=== PATIENT | female | born 1985 | race African-American/Black ===

== ENCOUNTER 2024-08-22 17:37 | Emergency (ER) | payer OTHER ==
[~2024-08-22] VITALS: Ht 167.6 cm; Wt 105.0 kg
--- NOTE | 2024-08-22 17:47 | ED.PDOC ---
SOB-HPI HPI Comments HPI: Poor Historian. 38-year-old female presents to emergency depart for nonproductive cough with the associated subjective fever for the last three days. Patient has history of asthma. Patient took Advil 2 hours prior to arrival. Incidentally patient also mentions having painful urination. Patient also has some mild congestion and runny nose. She suspects having sick contacts at her work place. She denies being , currently. Past Medical History: Diabetes, asthma, obesity Past Surgical History: x4 REVIEW OF SYSTEMS: CONSTITUTIONAL: Denies acute: diaphoresis, chills, HEAD: Denies acute: headache, photophobia Eyes: Denies acute: Double vision, vision loss, eye pain, eye discharge. EARS: Denies acute: tinnitus, hearing loss, ear discharge, ear pain, THROAT: Denies acute: sore throat, swelling, difficulty swallowing , pain with swallowing, change in voice. NECK: Denies acute: neck pain, neck swelling, stiff neck. HEART: Denies acute : chest pain, palpitations, LUNGS: Denies acute: wheezing, hemoptysis ABDOMEN: Denies acute: abdominal pain, Nausea, Vomiting, diarrhea, melena , hematemesis, hematochezia SKIN: Denies acute: rash, redness, lesions, itchiness. EXTREMITIES: Denies acute: calf pain, numbness, tingling, weakness, denies pain in extremity. Denies acute: Low back pain. Neuro: Denies acute: focal neurological deficit, motor or sensory focal neurological deficit, tremors, seizure like activity, confusion, dizziness, change in mental status, loss of bowel or bladder function, cauda equina like symptoms. : Denies acute: hematuria, flank pain, increase in urinary frequency. PSYCH: Denies acute: hallucination, suicidal ideation, homicidal ideation. FEMALE: Denies acute: abnormal vaginal bleeding, foul odor, unusual discharge. PHYSICAL EXAM: General: ---[id number]-----acute distress, awake and alert. Head: normocephalic, atraumatic. Neck: supple, trachea is midline, no swelling. Eyes:, no erythema, no purulent discharge, no proptosis, no icterus. Heart: regular rate, regular rhythm, no significant murmur appreciated. Lungs: no apparent respiratory distress, Able to speak in full sentences. No wheezing, no rhonchi, no crackles. No stridors Clear to auscultation bilaterally. Abdomen: non tender to palpation, non distended, soft, no guarding, no rebound, + bowel sounds. Neuro: Awake, Alert, oriented to name, self, situation, follows commands GCS=15. Speech is normal. Skin: no petechia, no purpura, no cyanosis, non-pale, not jaundice. Lower extremities: --no - Pitting edema no deformity, no focal swelling, no calf TTP. Makes eye contact. moves all four extremities. Face: no apparent facial droop. No CVA tenderness to percussion bilaterally. Ambulating in the ED independently. Ears: Normal appearing TM b/l, Stroke: finger to nose cerebellar testing is intact. No pronator drift. Symmetrical coding assistant muscle strength b/l PERRLA, EOM-I CN 2-12 are grossly intact, Pedal pulses are palpable. No nystagmus. No nuchal rigidity, Kernig's sign, Brudzinski's sign, no meningeal signs. ED COURSE: Time Seen by MD: 17:39 Reviewed notes: Nurses Notes, Medications, Allergies Information Source: Patient Was a procedure done? Was a procedure done?: No Differential Dx Differential Diagnosis: Bronchitis, Sinusitis, Allergic Rhinitis, URI, Other (DDx include ACS, unstable angina, anxiety, PE, pneumothroax, neoplasm, cardiac ischemia, COPD, asthma, CHF, pleural effusion, tobacco abuse, pneumonia, hypoxia, hypercapnia, anemia., infection/sepsis., pulmonary edema. Asthma, Cardiac tamponade, infection.) X-Ray, Labs, Meds, VS Vital Signs Date Time Temp Pulse Resp B/P (MAP) Pulse Ox O2 Delivery O2 Flow Rate FiO2 08/22/24 20:30 83 16 99 Room Air* 0 21 08/22/24 20:30 98.6 83 16 146/77 (100) 99 98.6 08/22/24 17:56 24 99 Room Air* 0 21 08/22/24 17:53 18 100 Room Air* 0 21 08/22/24 17:53 100 Room Air* 0 21 08/22/24 17:52 99.3 90 24 124/78 (93) 99 99.3 Lab Test 08/22/24 19:15 08/22/24 18:09 08/22/24 17:45 Range/Units Troponin I High Sensitivity < 3 L < 3 L </=34 ng/L White Blood Count 5.6 4.4-10.8 10^3/uL Red Blood Count 4.89 4.0-5.20 10^6/uL Hemoglobin 11.5 L 12.2-16.2 g/dL Hematocrit 35.9 L 36.0-46.0 % Mean Corpuscular Volume 73.4 L 80.0-100.0 fL Mean Corpuscular Hemoglobin 23.5 L 28.0-32.0 pg Mean Corpuscular Hemoglobin Concent 32.0 32.0-36.0 g/dL Red Cell Distribution Width 16.4 H 11.8-14.3 % Platelet Count 291 140-450 10^3/uL Mean Platelet Volume 7.9 6.9-10.8 fL Neutrophils (%) (Auto) 53.1 37.0-80.0 % Lymphocytes (%) (Auto) 36.7 10.0-50.0 % Monocytes (%) (Auto) 5.6 0.0-12.0 % Eosinophils (%) (Auto) 3.8 0.0-7.0 % Basophils (%) (Auto) 0.8 0.0-2.0 % Neutrophils # (Auto) 3.0 1.6-8.6 10 ^3/uL Lymphocytes # (Auto) 2.1 0.4-5.4 10 ^3/uL Monocytes # (Auto) 0.3 0-1.3 10 ^3/uL Eosinophils # (Auto) 0.2 0-0.8 10 ^3/uL Basophils # (Auto) 0 0-0.2 10 ^3/uL Nucleated Red Blood Cells 0.2 % Sodium Level 138 136-145 mmol/L Potassium Level 3.9 3.5-5.1 mmol/L Chloride Level 104 98-107 mmol/L Carbon Dioxide Level 27 20-31 mmol/L Anion Gap 7 5-15 Blood Urea Nitrogen 14 9-23 mg/dL Creatinine 0.97 0.550-1.02 mg/dL Glomerular Filtration Rate Calc 77 >90 mL/min BUN/Creatinine Ratio 14.4 10.0-20.0 Serum Glucose 226 H 74-106 mg/dL Calcium Level 10.0 8.7-10.4 mg/dL Total Bilirubin 0.3 0.2-1.0 mg/dL Aspartate Amino Transferase (AST) 26 13-40 U/L Alanine Aminotransferase (ALT) 32 7-40 U/L Alkaline Phosphatase 103 46-116 U/L B-Type Natriuretic Peptide 21.87 0-100 pg/mL Total Protein 6.9 5.7-8.2 g/dL Albumin 4.3 3.2-4.8 g/dL Urine Color Yellow Yellow Urine Clarity Clear Clear Urine pH 6.0 5.0-9.0 Urine Specific [place] 1.030 1.001-1.035 Urine Protein Trace H Negative Urine Ketones Trace Negative Urine Blood Negative Negative /uL Urine Nitrite Negative Negative Urine Bilirubin Negative Negative Urine Urobilinogen 2 H Negative mg/dL Urine Leukocyte Esterase Negative Negative /uL Urine RBC None seen 0 - 4 /hpf Urine Microscopic WBC < 1 0-5 /HPF Urine Squamous Epithelial Cells Few <5 /hpf Urine Bacteria None seen None Seen /hpf Urine Mucus Few None Seen Urine Glucose 3+ H Normal mg/dL Influenza Type A Antigen Negative Negative Influenza Type B Antigen Negative Negative SARS-CoV-2 Antigen (Rapid) Negative NEGATIVE Current Medications Medications (Trade) Dose Ordered Sig/Carol Route Start Time Stop Time Status Last Admin Albuterol (Ventolin Medneb) 2.5 mg ONCE ONCE NEB 08/22/24 17:45 08/22/24 17:46 DC 08/22/24 17:53 Ipratropium [place] (Atrovent Medneb) 1 mg ONCE ONCE NEB 08/22/24 17:45 08/22/24 17:46 DC 08/22/24 17:53 Methylprednisolone Sodium Succinate (Solu Medrol) 125 mg ONCE ONCE IV 08/22/24 17:45 08/22/24 17:46 DC 08/22/24 20:32 Ceftriaxone Sodium 50 ml @ 100 mls/hr ONCE ONCE IV 08/22/24 19:15 08/22/24 19:44 DC 08/22/24 20:32 Ketorolac Tromethamine (Toradol Injection) 15 mg ONCE ONCE IV 08/22/24 20:30 08/22/24 20:31 DC 08/22/24 20:32 [facility] [id number] [facility] [address] Ph: [phone] DIAGNOSTIC IMAGING Diagnostic Imaging Report : [id number] Signed PATIENT: GERALDINE CARRILLO ACCT: [id number] UNIT: [id number] : 1985 LOC: ER ROOM / BED: / AGE / SEX: 38 / F ADM STATUS: REG ER SERVICE 41 ORDERING PHYSICIAN: THOM KEN DO PROCEDURE(s): CXRP - CHEST PORTABLE REASON: cough/fever ORDER NUMBER(s): [id number], ACCESSION NUMBER(s): [id number] EXAM: XY CHEST PORTABLE CLINICAL HISTORY: cough/fever TECHNIQUE: Single AP view of the chest WID: COMPARISON: None FINDINGS: Lines and tubes: None Chest: The heart size and pulmonary vasculature is within normal limits. Mild central bronchial wall thickening. No pleural effusion, pneumothorax, or consolidation. The osseous structures are grossly intact. Multilevel thoracic spondylosis. IMPRESSION: Mild central bronchial wall thickening which could be acute or chronic bronchitis. ATED BY: THOM SHAHID MD DICTATED DATE/TIME: 08/22/241846 SIGNED BY: THOM SHAHID MD SIGNED DATE/TIME: 08/22/241846 CC: Time of 1ST Reevaluation: 19:21 Reevaluation 1ST: Improved Patient Education/Counseling: Diagnosis, Treatment Family Education/Counseling: No Family Present Comments Patient presented with the above HPI.--respiratory symptoms----workup was initiated. patient was found with the above mentioned diagnosis. the following medications were ordered: please refer to order lists of meds and tests obtained by myself Dr. Ken. Patient ED course and VS have been stabilized. Patient has been reassessed in the ED and remained in a stable condition. Pertinent incidental findings were discussed with the patient and/or family. Patient/family voices understanding and is agreeable with plan. Patient has been observed in the ED adequate length of time to insure improvement/stability. Escalation of care considered: Consideration of escalation to observation or admission Patient was DISCHARGED home in a stable condition. All the reports of any imaging studies that were ordered by myself were reviewed by myself. Departure 1 Departure Time of Disposition: 19:10 Impression: Primary Impression: Bronchitis Additional Impression: History of asthma Disposition: HOME / SELF CARE / HOMELESS Condition: Stable Written Prescriptions [address] [address] Ph: [phone] DIAGNOSTIC IMAGING Diagnostic Imaging Report : [id number] Signed PATIENT: GERALDINE CARRILLO ACCT: [id number] UNIT: [id number] : 1985 LOC: ER ROOM / BED: / AGE / SEX: 38 / F ADM STATUS: REG ER SERVICE 41 ORDERING PHYSICIAN: THOM KEN DO PROCEDURE(s): CXRP - CHEST PORTABLE REASON: cough/fever ORDER NUMBER(s): [id number], ACCESSION NUMBER(s): [id number] EXAM: XY CHEST PORTABLE CLINICAL HISTORY: cough/fever TECHNIQUE: Single AP view of the chest WID: COMPARISON: None FINDINGS: Lines and tubes: None Chest: The heart size and pulmonary vasculature is within normal limits. Mild central bronchial wall thickening. No pleural effusion, pneumothorax, or consolidation. The osseous structures are grossly intact. Multilevel thoracic spondylosis. IMPRESSION: Mild central bronchial wall thickening which could be acute or chronic bronchitis. ATED BY: THOM SHAHID MD DICTATED DATE/TIME: 08/22/241846 SIGNED BY: THOM SHAHID MD SIGNED DATE/TIME: 08/22/241846 CC: e-Prescriptions Albuterol Sulfate (Albuterol Sulfate Hfa) 108 Mcg/Act Aer 108 MCG IN Q4HPRN PRN for 10 Days, #1 AER Prov: THOM KEN DO 08/22/24 Azithromycin (Zithromax Tri-Guero) 500 Mg Tab 500 MG PO DAILY for 5 Days, #5 TAB Prov: THOM KEN DO 08/22/24 Prednisone (Prednisone) 20 Mg Tab 40 MG PO DAILY for 5 Days, #10 TAB Prov: THOM KEN DO 08/22/24 Discharged With: Self Critical Care Note Critical Care Time?: No Heart Score Heart Score: Heart Score Response (Comments) Value History N/A 0 EKG N/A 0 Age N/A 0 Risk Factors N/A 0 Troponin N/A 0 Total 0 I personally scribed for THOM KEN DO ([email or web address]) on 08/22/24 at 19:16. Electronically submitted by Caleb Coffey ([email or web address]). I personally scribed for THOM KEN DO ([email or web address]) on 08/22/24 at 19:22. Electronically submitted by Caleb Coffey ([email or web address]). I personally scribed for THOM KEN DO ([email or web address]) on 08/22/24 at 20:48. Electronically submitted by Caleb Coffey ([email or web address]). THOM KEN DO Aug 22, 2024 17:47
[2024-08-22] MEDS: ALBUTEROL SULF 2.5 MG/0.5ML(0.5%) NEB SOLN NEB ONE (17:53)
[2024-08-22] MEDS: IPRATROPIUM BROM 0.5 MG/2.5ML INH SOL NEB ONE (17:53)
[2024-08-22 18:37] LABS: Urine Bacteria None Seen /hpf (None Seen)
[2024-08-22 18:45] LABS: Basophils # (auto) 0 10 ^3/uL (0-0.2); Basophils % (auto) 0.8 % (0.0-2.0); Eosinophils # (auto) 0.2 10 ^3/uL (0-0.8); Hematocrit 35.9 % (36.0-46.0); Hemoglobin 11.5 g/dL (12.2-16.2); Mean Corpuscular Hemoglobin 23.5 pg (28.0-32.0); Mean Corpuscular Volume 73.4 fL (80.0-100.0); Monocytes # (auto) 0.3 10 ^3/uL (0-1.3); Nucleated Red Blood Cells % 0.2 %
[2024-08-22 18:47] LABS: Eosinophils % (auto) 3.8 % (0.0-7.0); Lymphocytes # (auto) 2.1 10 ^3/uL (0.4-5.4); Lymphocytes % (auto) 36.7 % (10.0-50.0); Monocytes % (auto) 5.6 % (0.0-12.0); Neutrophils % (auto) 53.1 % (37.0-80.0); Platelet Count (auto) 291 10^3/uL (140-450); Red Blood Cells 4.89 10^6/uL (4.0-5.20); Red Cell Distribution Width 16.4 % (11.8-14.3); White Blood Cell 5.6 10^3/uL (4.4-10.8)
--- NOTE | 2024-08-22 18:50 | DVH ---
EXAM: XY CHEST PORTABLE CLINICAL HISTORY: cough/fever TECHNIQUE: Single AP view of the chest WID: COMPARISON: None FINDINGS: Lines and tubes: None Chest: The heart size and pulmonary vasculature is within normal limits. Mild central bronchial wall thicken ing. No pleural effusion, pneumothorax, or consolidation. The osseous structures are grossly intact. Multilevel thoracic spondylosis. IMPRESSION: Mild central bronchial wall thickening which could be acute or chronic bronchitis.
[2024-08-22 18:56] LABS: Alanine Aminotransferase 32 U/L (7-40); Albumin 4.3 g/dL (3.2-4.8); Alkaline Phosphatase 103 U/L (46-116); Anion Gap 7 (5-15); Aspartate Aminotransferase 26 U/L (13-40); BUN/Creatinine Ratio 14.4 (10.0-20.0); Blood Urea Nitrogen 14 mg/dL (9-23); Carbon Dioxide 27 mmol/L (20-31); Chloride 104 mmol/L (98-107); Potassium 3.9 mmol/L (3.5-5.1); Sodium 138 mmol/L (136-145); Total Protein 6.9 g/dL (5.7-8.2)
[2024-08-22 18:58] LABS: Bilirubin, Total 0.3 mg/dL (0.2-1.0); Glucose 226 mg/dL (74-106)
[2024-08-22 18:59] LABS: Urine Blood Negative /uL (Negative); Urine Clarity Clear (Clear); Urine Color Yellow (Yellow); Urine Mucus FEW (None Seen); Urine Protein, UAD TRACE (Negative); Urine Squamous Epithelial Cell FEW /hpf (<5); Urine Urobilinogen 2 mg/dL (Negative); Urine WBC < 1 /HPF (0-5)
[2024-08-22 19:00] LABS: COVID19 ANTIGEN SOFIA FIA NEGATIVE (NEGATIVE); Rapid Influenza A Negative (Negative); Rapid Influenza B Negative (Negative)
[2024-08-22] MEDS ORDERED: AZITTAB2 PO (19:10)
[2024-08-22] MEDS ORDERED: PRED20TA2 PO (19:10)
[2024-08-22] MEDS ORDERED: ALBU108A5 IN (19:20)
[2024-08-22 20:30] VITALS: BP 146/77; PULSE 83; RESP 16; TEMP 98.6; O2SAT 99
[2024-08-22] MEDS: cefTRIAXone 1GM/50ML D5W 50 ML IV ONE (20:32)
[2024-08-22] MEDS: methylPREDNISolone SOD SUCC 125 MG/2 ML VL IV ONE (20:32)
[2024-08-22] MEDS: KETOROLAC TROMETH 30 MG/ML 1ML VIAL IV ONE (20:32)
== END 2024-08-22 21:04 | disposition home or self-care (01) ==
LOC: ER 17:41
DX: J40 Bronchitis, not specified as acute or chronic (principal); E11.9 Type 2 diabetes mellitus without complications; E66.9 Obesity, unspecified; R30.9 Painful micturition, unspecified; Z20.822 Contact with and (suspected) exposure to COVID-19; Z98.890 Other specified postprocedural states
CPT/HCPCS: 36415; 71045; 80053; 81001; 83880; 84484; 85025; 87426; 87804; 94640; 96365; 96375; 99284; J0696; J1885; J2919

== ENCOUNTER 2024-12-08 21:02 | Emergency (ER) | payer MEDICAID, OTHER ==
[~2024-12-08] VITALS: Ht 167.6 cm; Wt 115.7 kg
[~2024-12-08 21:02] MED LIST: ALBU108A5 IN; AZITTAB2 PO; PRED20TA2 PO
[2024-12-08 21:03] VITALS: BP 153/100; PULSE 90; RESP 18; TEMP 98.2; O2SAT 100
[2024-12-08 22:21] LABS: Hematocrit 33.4 % (36.0-46.0); Hemoglobin 10.9 g/dL (12.2-16.2); Mean Corpuscular Hemoglobin 22.9 pg (28.0-32.0); Mean Corpuscular Volume 70.3 fL (80.0-100.0); Nucleated Red Blood Cells % 0.1 %
[2024-12-08 22:32] LABS: Chloride 107 mmol/L (98-107); Potassium 3.7 mmol/L (3.5-5.1); Sodium 139 mmol/L (136-145)
[2024-12-08 22:33] LABS: Anion Gap 9 (5-15); Calcium 9.0 mg/dL (8.7-10.4); Carbon Dioxide 23 mmol/L (20-31)
[2024-12-08 22:38] LABS: BUN/Creatinine Ratio 14.7 (10.0-20.0); Blood Urea Nitrogen 10 mg/dL (9-23)
[2024-12-08 22:53] LABS: Glucose 115 mg/dL (74-106)
--- NOTE | 2024-12-08 23:50 | DVH ---
INDICATION: Vaginal bleeding, pelvic pain TECHNIQUE: Multiple real-time grayscale transabdominal sonographic images along with color and duplex Doppler of the uterus and ovaries were obtained. COMPARISON: None FINDINGS: Enlarged uterus measures 12.4 x 6 x 7 x 6.3 cm. A fundal fibroid measures 4.7 x 4.5 x 5.2 cm. Endomet rium is obscured. No free fluid within the cul-de-sac Right ovary measures 3.2 x 1.8 x 2.9 cm and left ovary measures 2.5 x 1.2 x 2.3 cm. Normal vasculatur e flow is noted within bilateral ovaries. IMPRESSION: Enlarged uterus measures 12.4 x 6 x 7 x 6.3 cm. A large heterogenous fundal fibroid measures 4.7 x 4. 5 x 5.2 cm.
--- NOTE | 2024-12-08 23:57 | ED.PDOC ---
History of Present Illness HPI Comments 39-year-old female with no significant past medical history presents to the ED for the chief complaint of abnormal vaginal bleeding with associated nausea, vomiting, and abdominal pain. Patient states that her symptoms started approximately 3 days ago after she took an at-home test, and notes the result was positive. Patient knows that she is currently having no alleviating factors, and notes she has used approximately 3 pads today. Patient notes she is and denies any headache, blurry vision, weakness, dysuria, hematuria, chest pain, back pain, or any other associated symptoms, modifiers at this time. PHYSICAL EXAM: General: Awake, alert and oriented. No acute distress. Skin: Skin in warm, dry and intact without rashes or lesions. HEENT: The head is normocephalic and atraumatic. Conjunctivae are clear without exudates or hemorrhage. Sclera is non-icteric. Neck: Normal range of motion. No JVD. Cardiac: Regular rate Respiratory: No signs of respiratory distress. No Stridor. Extremities: Upper and lower extremities are atraumatic in appearance without deformity. Neurological: The patient is awake, alert and oriented to person, place, and time with normal speech. Speech is clear. There is no facial asymmetry. Psychiatric: Appropriate mood and affect. Good judgement and insight. REVIEW OF SYSTEMS: General: No fever, no chills, or fatigue HEENT: No sore throat, no earache, no congestion, no neck pain. Cardiac: No chest pain. No palpitations. Lungs: No shortness of breath, no cough. GI: No nausea, no vomiting, no diarrhea, no constipation, no abdominal pain : No dysuria, frequency, or urgency. No hematuria. Musculoskeletal: No joint pain , no joint swelling, no extremity edema. Skin: No rash, no itching. Neuro: No headache, no dizziness, no weakness Gynecology: Abnormal vaginal bleeding. Chief Complaint: Vaginal Bleed Time Seen by MD: 23:54 Primary Care Provider: [facility] Reviewed Notes: Nurses Notes, Medications, Allergies Allergies: Coded Allergies: NO KNOWN ALLERGIES (Unverified , 08/22/24) Home Meds Active Scripts Albuterol Sulfate (Albuterol Sulfate Hfa) 108 Mcg/Act Aer, 108 MCG IN Q4HPRN PRN for 10 Days, #1 AER Prov:THOM KEN DO 08/22/24 Azithromycin (Zithromax Tri-Guero) 500 Mg Tab, 500 MG PO DAILY for 5 Days, #5 TAB Prov:THOM KEN DO 08/22/24 Prednisone (Prednisone) 20 Mg Tab, 40 MG PO DAILY for 5 Days, #10 TAB Prov:THOM KEN DO 08/22/24 Information Source: Patient Mode of Arrival: Ambulatory Severity: Moderate Timing: Days Duration: Intermittent, Days Prehospital treatment: None Past Medical History PAST MEDICAL HISTORY: Denies Surgical History: Denies all surgeries ICT TEACHER History: No Pertinent ICT TEACHER History Family History Family History: Unknown Social History Smoker: Non-Smoker Alcohol: Denies ETOH Use Drugs: Denies Drug Use Lives In: Home Was a procedure done? Was a procedure done?: No Differential Dx Considerations may include: Possible , ectopic , miscarriage, anemia, abnormal uterine bleeding, menstruation, other X-Ray, Labs, Meds, VS Vital Signs Date Time Temp Pulse Resp B/P (MAP) Pulse Ox O2 Delivery O2 Flow Rate FiO2 12/08/24 21:03 98.2 90 18 153/100 100 98.2 Lab Test 12/08/24 22:01 Range/Units White Blood Count 4.8 4.4-10.8 10^3/uL Red Blood Count 4.76 4.0-5.20 10^6/uL Hemoglobin 10.9 L 12.2-16.2 g/dL Hematocrit 33.4 L 36.0-46.0 % Mean Corpuscular Volume 70.3 L 80.0-100.0 fL Mean Corpuscular Hemoglobin 22.9 L 28.0-32.0 pg Mean Corpuscular Hemoglobin Concent 32.6 32.0-36.0 g/dL Red Cell Distribution Width 16.6 H 11.8-14.3 % Platelet Count 318 140-450 10^3/uL Mean Platelet Volume 7.8 6.9-10.8 fL Neutrophils (%) (Auto) 42.2 37.0-80.0 % Lymphocytes (%) (Auto) 43.2 10.0-50.0 % Monocytes (%) (Auto) 8.2 0.0-12.0 % Eosinophils (%) (Auto) 5.3 0.0-7.0 % Basophils (%) (Auto) 1.1 0.0-2.0 % Neutrophils # (Auto) 2.0 1.6-8.6 10 ^3/uL Lymphocytes # (Auto) 2.1 0.4-5.4 10 ^3/uL Monocytes # (Auto) 0.4 0-1.3 10 ^3/uL Eosinophils # (Auto) 0.3 0-0.8 10 ^3/uL Basophils # (Auto) 0.1 0-0.2 10 ^3/uL Nucleated Red Blood Cells 0.1 % Sodium Level 139 136-145 mmol/L Potassium Level 3.7 3.5-5.1 mmol/L Chloride Level 107 98-107 mmol/L Carbon Dioxide Level 23 20-31 mmol/L Anion Gap 9 5-15 Blood Urea Nitrogen 10 9-23 mg/dL Creatinine 0.68 0.550-1.02 mg/dL Glomerular Filtration Rate Calc 114 >90 mL/min BUN/Creatinine Ratio 14.7 10.0-20.0 Serum Glucose 115 H 74-106 mg/dL Calcium Level 9.0 8.7-10.4 mg/dL Beta HCG, Quantitative 0.4 L 1.5-4.2 mIU/mL DIAGNOSTIC IMAGING Diagnostic Imaging Report : [id number] Signed PATIENT: GERALDINE CARRILLO ACCT: [id number] UNIT: [id number] : 1985 LOC: ER ROOM / BED: / AGE / SEX: 39 / F ADM STATUS: REG ER SERVICE 3606 ORDERING PHYSICIAN: LARA DASH MD PROCEDURE(s): PELUS - PELVIC REASON: Vaginal bleeding, pelvic pain ORDER NUMBER(s): [id number], ACCESSION NUMBER(s): [id number] INDICATION: Vaginal bleeding, pelvic pain TECHNIQUE: Multiple real-time grayscale transabdominal sonographic images along with color and duplex Doppler of the uterus and ovaries were obtained. COMPARISON: None FINDINGS: Enlarged uterus measures 12.4 x 6 x 7 x 6.3 cm. A fundal fibroid measures 4.7 x 4.5 x 5.2 cm. Endometrium is obscured. No free fluid within the cul-de-sac Right ovary measures 3.2 x 1.8 x 2.9 cm and left ovary measures 2.5 x 1.2 x 2.3 cm. Normal vasculature flow is noted within bilateral ovaries. IMPRESSION: Enlarged uterus measures 12.4 x 6 x 7 x 6.3 cm. A large heterogenous fundal fibroid measures 4.7 x 4.5 x 5.2 cm. ATED BY: LISA CHO MD DICTATED DATE/TIME: 12/08/242347 SIGNED BY: LIAS CHO MD SIGNED DATE/TIME: 12/08/242347 CC: Time of 1ST Reevaluation: 00:24 Reevaluation 1ST: Unchanged Patient Education/Counseling: Diagnosis, Treatment, Need For Follow Up Family Education/Counseling: No Family Present SEPSIS Sepsis Screen Date sepsis recognized/suspect: Dec 08, 2024 Time Sepsis recognized/suspect: 2105 Recent Procedure: No On Antibiotic Therapy: No Respiratory Rate >20: No Heart Rate >90: No Temp<36 C (96.8 F) or >38.3 C: No SBP <90 or MAP <65 mmHG: No New Acute Mental Status Change: No Is the patient on CPAP, BIPAP,: No Physician Orders Urinalysis (12/08/24 21:45) Chlamydia/Gc Amplification (12/08/24 21:45) Pelvic (12/08/24 22:58) Vital Signs Date Time Temp Pulse Resp B/P (MAP) Pulse Ox O2 Delivery O2 Flow Rate FiO2 12/08/24 21:03 98.2 90 18 153/100 100 98.2 Laboratory Tests Test 12/08/24 22:01 White Blood Count 4.8 10^3/uL (4.4-10.8) Departure 1 Departure Time of Disposition: 00:40 Impression: Primary Impression: Vaginal bleeding Additional Impression: Anemia Disposition: 01 HOME / SELF CARE / HOMELESS Condition: Stable Additional Instructions: ED DISCHARGE INSTRUCTIONS Instructions: Please read all instructions provided in this packet carefully. Although you have been discharged from the Emergency Department, this does not mean that you have a "clean bill of health". No definitive diagnosis for your symptoms has been made today. It is possible that you are in the process of developing a serious illness. This is why you must return to the ED without fail if any new or worsening symptoms (especially if your symptoms include chest pain, trouble breathing, worsening abdominal pain, fever, headache, confusion, trouble seeing, or trouble walking) It is also very important that you see a primary care provider (PCP) within the next 3-5 days to follow up. If you are unable to get an appointment, return to the ED for re-evaluation. A copy of your ultrasound report is included below: ANEMIA EDUCATION Anemia is a low level of red blood cells, which carry oxygen throughout your body. Many things can cause anemia. Lack of iron is one of the most common causes. Your body needs iron to make hemoglobin. This is a substance in red blood cells that carries oxygen from the lungs to your body's cells. Without enough iron, the body produces fewer and smaller red blood cells. As a result, your body's cells do not get enough oxygen, and you feel tired and weak. And you may have trouble concentrating. Bleeding is the most common cause of a lack of iron. You may have heavy men strual bleeding or bleeding caused by conditions such as ulcers or cancer. Regular use of aspirin or other anti-inflammatory medicines (such as ibuprofen) also can cause bleeding in some people. A lack of iron in your diet also can cause anemia, especially at times when the body needs more iron. This includes during , infancy, and the teen years. Your doctor may have prescribed iron pills. It may take several months of treatment for your iron levels to return to normal. Your doctor also may suggest that you eat foods that are rich in iron, such as meat and beans. There are many other causes of anemia. It is not always due to a lack of iron. Finding the specific cause of your anemia will help your doctor find the right treatment for you. Follow-up care is a charles part of your treatment and safety. Be sure to make and go to all appointments, and call your doctor if you are having problems. It's also a good idea to know your test results and keep a list of the medicines you take. When should you call for help? Call 911 anytime you think you may need emergency care. For example, call if: You have symptoms of a heart attack. These may include: Chest pain or pressure, or a strange feeling in the chest. Sweating. Shortness of breath. Nausea or vomiting. Pain, pressure, or a strange feeling in the back, neck, jaw, or upper belly or in one or both shoulders or arms. Lightheadedness or sudden weakness. A fast or irregular heartbeat. After you call 911, the escalator operator may tell you to chew 1 adult-strength or 2 to 4 low-dose aspirin. Wait for an ambulance. Do not try to drive yourself. You passed out (lost consciousness). You have severe shortness of breath. Call your doctor now or seek immediate medical care if: You have new or increased shortness of breath. You are dizzy or lightheaded, or you feel like you may faint. You have new or worse nausea and vomiting. Your fatigue and weakness continue or get worse. You have any abnormal bleeding, such as: Nosebleeds. Vaginal bleeding that is different (heavier, more frequent, at a different time of the month) than what you are used to. Bloody or black stools, or rectal bleeding. Bloody or pink urine. Current as of: April 10, 2023 Author: [employer]? Vaginal Bleeding (Nonpregnancy): Care Instructions Overview It's common to have bleeding or spotting between periods. Lots of things can cause it. You may bleed because of hormone problems, stress, or ovulation. Fibroids and IUDs (intrauterine devices) can also cause bleeding. If your bleeding or spotting is caused by one of these things and isn't heavy or doesn't happen often, you probably don't need to worry. But in rare cases, infection, cancer, or other serious conditions can cause bleeding. So you may need more tests to find the cause of your bleeding. The doctor has checked you carefully, but problems can develop later. If you notice any problems or new symptoms, get medical treatment right away. Follow-up care is a charles part of your treatment and safety. Be sure to make and go to all appointments, and call your doctor if you are having problems. It's also a good idea to know your test results and keep a list of the medicines you take. How can you care for yourself at home? Take pain medicines exactly as directed. If the doctor gave you a prescription medicine for pain, take it as prescribed. If you are not taking a prescription pain medicine, ask your doctor if you can take an [id number] medicine. Do not take aspirin, which may make bleeding worse. If your doctor prescribed control pills for your bleeding, take them as directed. Eat foods that are high in iron and vitamin C. Foods high in iron include red meat, shellfish, eggs, beans, and leafy green vegetables. Foods high in vitamin C include citrus fruits, tomatoes, and broccoli. Ask your doctor if you need to take iron pills or a multivitamin. Ask your doctor when it is okay to have sex. When should you call for help? Call 911 anytime you think you may need emergency care. For example, call if: You passed out (lost consciousness). Call your doctor now or seek immediate medical care if: You have severe vaginal bleeding. You are dizzy or lightheaded, or you feel like you may faint. You have new or worse belly or pelvic pain. Watch closely for changes in your health, and be sure to contact your doctor if: Your bleeding gets worse. You think you might be . You do not get better as expected. Credits for Vaginal Bleeding (Nonpregnancy): Care Instructions Current as of: August 27, 2023 Author: [employer] Staff Clinical Review Board All [employer] education is reviewed by a team that includes physicians, nurses, advanced practitioners, registered dieticians, and other healthcare professionals. ULTRASOUND REPORT: PROCEDURE(s): PELUS - PELVIC REASON: Vaginal bleeding, pelvic pain INDICATION: Vaginal bleeding, pelvic pain TECHNIQUE: Multiple real-time grayscale transabdominal sonographic images along with color and duplex Doppler of the uterus and ovaries were obtained. COMPARISON: None FINDINGS: Enlarged uterus measures 12.4 x 6 x 7 x 6.3 cm. A fundal fibroid measures 4.7 x 4.5 x 5.2 cm. Endometrium is obscured. No free fluid within the cul-de-sac Right ovary measures 3.2 x 1.8 x 2.9 cm and left ovary measures 2.5 x 1.2 x 2.3 cm. Normal vasculature flow is noted within bilateral ovaries. IMPRESSION: Enlarged uterus measures 12.4 x 6 x 7 x 6.3 cm. A large heterogenous fundal fibroid measures 4.7 x 4.5 x 5.2 cm. ATED BY: LISA CHO MD DICTATED DATE/TIME: 12/08/24 1816 SIGNED BY: LISA CHO MD SIGNED DATE/TIME: 12/08/24 3733 CC: Comments 39-year-old female who presented to the emergency department reporting vaginal bleeding during . Beta quant was low. No IUP demonstrated on pelvic ultrasound. Patient felt stable for discharge home. Advised prompt follow-up with PCP, return to the ED with any new, worsening or concerning symptoms. Critical Care Note Critical Care Time?: No Stability Stability form required: No Heart Score Heart Score: Heart Score Response (Comments) Value History N/A 0 EKG N/A 0 Age N/A 0 Risk Factors N/A 0 Troponin N/A 0 Total 0 I personally scribed for LARA DASH MD ([email or web address]) on 12/08/24 at 23:57. Electronically submitted by Perry Rivera ([email or web address]). LARA DASH MD Dec 08, 2024 23:57
== END 2024-12-09 05:30 | disposition home or self-care (01) ==
LOC: ER 21:02
DX: O46.90 Antepartum hemorrhage, unspecified, unspecified trimester (principal); O99.011 Anemia complicating pregnancy, first trimester; R10.2 Pelvic and perineal pain; Z3A.01 Less than 8 weeks gestation of pregnancy
CPT/HCPCS: 76856; 80048; 84702; 86850; 86900; 86901